=== PATIENT | female | born 1975 | race Caucasian/White ===

== ENCOUNTER → 2023-09-01 12:48 | Outpatient (REF) | payer OTHER, SELFPAY | LOC: RAD 12:48 | PROVIDERS: ATTENDING PHYSICIAN Student in an Organized Health Care Education/Training Program | DX: M54.41 Lumbago with sciatica, right side (principal); M79.671 Pain in right foot | CPT/HCPCS: 72110; 73630 ==

== ENCOUNTER 2023-09-11 18:12 | Emergency (ER) | payer OTHER, SELFPAY ==
[2023-09-11 18:27] VITALS: BP 136/86
--- NOTE | 2023-09-11 23:46 | ED.GENMED ---
History of Present Illness
General
Chief Complaint: Extremity Pain (non-traumatic)
Source: patient
Time Seen by Provider: 09/11/23 23:40
Travel History
Have you had any contact with someone who has COVID-19?: No
Do you have any symptoms of coronavirus? Fever > 100 degrees, chills, cough, shortness of breath, sore throat, loss of taste or smell, muscle aches, or headache?: No
History of Present Illness
History of Present Illness:
47-year-old female with no significant past medical history presenting to the emergency department for evaluation of right foot and ankle pain that she notes has been ongoing for a little over a year today pain seems to be more in the heel as well
as the calf area. Patient was concerned for possible DVT. She denies any trauma, weakness or numbness, breaks in the skin, erythema, fevers, chills, rigors, chest pain, shortness of breath or any other concerns. Patient does not have any DVT/PE
risk factors.
Past History
Past History
ED Past Medical History: None
ED Past Surgical History: Other (Hernia repair)
Social History
Tobacco: Non-smoker
Alcohol: None
Drug: None
Personal:
Living: with family
Employment: Employed
Review of Systems
Review of Systems
All Other Systems: ROS reviewed and negative except as documented in HPI and ROS
Phy Exam
Physical Exam
Physical Exam:
GENERAL: Alert , in no apparent distress
EYE: conjunctiva clear
Head: Normocephalic atraumatic
NECK: Supple,
ENT: mmm.
LUNGS: no acute respiratory distress
NEUROLOGICAL: Alert and oriented
SKIN: Warm and dry, skin intact.
MUSCULOSKELETAL: Right lower extremity: No obvious deformity, erythema, edema, ecchymosis, abrasions or lacerations. Mild tenderness over the calcaneal insertion. No calf tenderness or edema. Easily palpable pedal and tibial pulse. Cap refill
less than 2 seconds. Sensation grossly intact to light touch. Negative Homans' sign
PSYCH: Normal and appropriate interaction.
Scores
Heart Failure Risk
Heart Failure Risk Score: Not Applicable
Heart Score for Chest Pain Patients
STEMI patient?: Not applicable
Withdrawal Assessment of Alcohol
Withdrawal Assessment Completed?: Not applicable
Course
Orders/Labs/Results
Orders:
Orders
09/11/23 18:26
US Periph Venous LOWER Ext RT Urgent
Comment:
Reason For Exam: swelling and pain, no injury
Vital Signs
Initial and Last Documented VS:
Initial Vital Signs
Temp Pulse Resp BP Pulse Ox
97.9 F 94 16 136/86 99
09/11/23 18:27 09/11/23 18:27 09/11/23 18:27 09/11/23 18:27 09/11/23 18:27
Last Documented Vital Signs
Temp Pulse Resp BP Pulse Ox
97.9 F 73 16 116/79 99
09/11/23 18:27 09/11/23 23:53 09/11/23 18:27 09/11/23 23:53 09/11/23 18:27
MDM/Problems Addressed
Differential Diagnosis Includes:
Tendinitis, no concern for fracture, minimal concern for DVT
MDM/Problems Addressed:
47-year-old female presenting emergency department for evaluation of right foot and ankle pain that she notes is been ongoing for around a year or so but today noticed increased pain around the calcaneus and gastrocnemius. Ultrasound was ordered
from triage and is negative for DVT. There is no trauma that would be suspicious for any type of fracture. Patient is ambulatory and in no acute distress. Stable for discharge home and outpatient management. Provided with information for
podiatry.
*Radiology
Radiology exam reviewed: radiology read reviewed
*Pulse Oximetry
Patient hypoxic: no
*Critical Care Note
Total Time (30-74mins, 75-104mins- exclusive of procedures): Not Applicable
ED Attending Note
-
Portions of this chart may have been created with voice recognition software.� Occasional wrong word or��sound alike� substitutions may have occurred due to the inherent limitations of voice recognition software.
Discharge Plan
Departure
Patient Disposition: Home (Routine Discharge)
Date of Disposition: 09/11/23
Time of Disposition: 23:46
Patient with high blood pressure during this ER visit?: No
Discharge Problem:
Lower extremity pain, right
Instructions: Tendinopathy (DC)
Referrals:
Vinnie Michel DPM [Specified Professional Personl] - (Podiatry)
UNKNOWN - PT DOES,NOT KNOW [Family Provider] -
Interventions
Interventions:
*Risk Screen - Suicide Last Done: 09/11/23 23:47
*General Assessment Last Done: 09/11/23 23:47
*Neglect/Abuse Screening Last Done: 09/11/23 23:47
*Nursing Disposition Last Done: 09/11/23 23:53
ED-Skin Assessment Last Done: 09/11/23 23:07
ED-Musculoskeletal Assessment Last Done: 09/11/23 23:06
Discharge Date and Time
Discharge Date/Time: 09/11/23 23:54
Print Language: WELSH
[2023-09-11 23:52] VITALS: BP 116/79
[2023-09-11 23:53] VITALS: BP 116/79
== END 2023-09-11 23:54 | disposition home or self-care (01) ==
LOC: EMR 18:12
PROVIDERS: EMERGENCY PHYSICIAN Student in an Organized Health Care Education/Training Program
DX: M79.604 Pain in right leg (principal)
CPT/HCPCS: 99284; 93971

== ENCOUNTER → 2023-10-28 07:00 | Outpatient (REF) | payer OTHER, SELFPAY | LOC: MRI 07:00 | PROVIDERS: ATTENDING PHYSICIAN Orthopaedic Surgery; FAMILY PHYSICIAN Family Medicine | DX: M25.571 Pain in right ankle and joints of right foot (principal) | CPT/HCPCS: 73721 ==